=== PATIENT | male | born 1945 | race Caucasian/White ===

== ENCOUNTER 2017-08-02 07:49 | Day surgery (SDC) | payer MEDICARE, BC ==
[~2017-08-02] VITALS: Ht 172.7 cm; Wt 79.5 kg
[~2017-08-02 07:49] MED LIST: ALLER TEC PO; ASPI81CH; Amlodipine Besyl5 MG PO; BREO ELLIPTA 11 EACH INH; CEPH500 PO; DIPH50 PO; ERGO400 PO; FISH1000 PO; Flonase 0.05% N16 GM; HYDACE5 PO; LOVA40 PO; PROBIOTIC PO; WARF5 PO
== END 2017-08-02 10:08 | disposition home or self-care (01) ==
LOC: ORSCSDS 07:49
PROVIDERS: Internal Medicine Gastroenterology
PROC: 0DBH8ZX Excision of Cecum, Via Natural or Artificial Opening Endoscopic, Diagnostic (ICD-10-PCS; principal; 2017-08-02 09:00)
PROC: 0DBK8ZX Excision of Ascending Colon, Via Natural or Artificial Opening Endoscopic, Diagnostic (ICD-10-PCS; principal; 2017-08-02 09:00)
DX: Z12.11 Encounter for screening for malignant neoplasm of colon (principal); D12.0 Benign neoplasm of cecum; D12.2 Benign neoplasm of ascending colon; K64.8 Other hemorrhoids; K57.30 Diverticulosis of large intestine without perforation or abscess without bleeding; Z86.010 Personal history of colon polyps; I10 Essential (primary) hypertension; Z87.891 Personal history of nicotine dependence; E78.5 Hyperlipidemia, unspecified; D69.6 Thrombocytopenia, unspecified; Z79.899 Other long term (current) drug therapy
CPT/HCPCS: 88305; J0330; J1980; J2405; J7120

== ENCOUNTER → 2021-06-30 | Outpatient (CLI) | payer MEDICARE, BC ==
[2021-06-30 13:43] LABS: BASOPHILS ABSOLUTE AUTO 0.03 K/mm3 (0.00-0.23); BASOPHILS PERCENT AUTO 1 % (0-2); EOSINOPHILS ABSOLUTE AUTO 0.33 K/mm3 (0.00-0.68); EOSINOPHILS PERCENT AUTO 5 % (0-6); Hematocrit 42.7 % (37.0-53.0); Hemoglobin 14.2 g/dL (13.5-17.5); IMMATURE GRAN ABSOLUTE AUTO 0.01 K/mm3 (0.00-0.10); IMMATURE GRAN PERCENT AUTO 0 % (0-1); LYMPHOCYTES ABSOLUTE AUTO 1.14 K/mm3 (0.84-5.20); LYMPHOCYTES PERCENT AUTO 18 % (21-46); MONOCYTES ABSOLUTE AUTO 0.86 K/mm3 (0.16-1.47); MONOCYTES PERCENT AUTO 13 % (4-13); Mean Corpuscular HGB 32.1 pg (26.0-34.0); Mean Corpuscular HGB Conc 33.3 g/dL (31.5-36.5); Mean Corpuscular Volume 97 fL (80-100); NEUTROPHILS ABSOLUTE AUTO 4.14 K/mm3 (1.96-9.15); NEUTROPHILS PERCENT AUTO 64 % (41-73); Platelet Count 137 K/mm3 (150-400); RDW Coefficient Variation 12.4 % (11.7-14.2); RDW Standard Deviation 44.1 fL (35.1-46.3); Red Blood Cell Count 4.42 M/mm3 (4.30-5.90); White Blood Cell Count 6.51 K/mm3 (4.00-11.30)
[2021-06-30 13:45] LABS: Mean Platelet Volume 13.1 fL (9.1-12.4)
[2021-06-30 14:35] LABS: Alanine Aminotransfer (ALT/SGP 30 U/L (12-78); Albumin, Blood 3.8 g/dL (3.4-5.0); Albumin/Globulin Ratio 1.1 (0.8-1.8); Alk Phos 64 U/L (50-136); Anion Gap 6 mmol/L (6-16); Aspartate Aminotrans (AST/SGOT 19 U/L (12-37); Blood Urea Nitrogen 15 mg/dL (8-24); Bun/Creatinine Ratio 18.5 (12.0-20.0); CO2, Blood 28 mmol/L (21-32); Calcium, Blood 9.2 mg/dL (8.5-10.1); Chloride, Blood 108 mmol/L (98-108); Cholesterol 163 mg/dL (50-200); Creatinine, Blood 0.81 mg/dL (0.60-1.20); Globulin, Blood 3.5 g/dL (2.2-4.0); Glomerular Filtration Rate >60 (60-); Glucose, Blood 98 mg/dL (70-99); Potassium, Blood 4.5 mmol/L (3.5-5.5); Sodium, Blood 142 mmol/L (136-145); Total Protein, Blood 7.3 g/dL (6.4-8.2); Triglycerides 98 mg/dL (30-160); Very Low Density Lipoprot Chol 19 mg/dL (6-32)
[2021-06-30 14:44] LABS: CHOL/HDL RATIO 2.9; HDL Cholesterol 56 mg/dL (>39); LDL/HDL RATIO 1.6; Low Density Lipoprotein Chol 87 mg/dL (0-110); Thyroid Stimulating Hormone 0.945 uIU/mL (0.360-4.800)
== END | disposition home or self-care (01) ==
LOC: LAB 07:15 → LAB SHORT 07:15
PROVIDERS: Internal Medicine
DX: E78.5 Hyperlipidemia, unspecified (principal)
CPT/HCPCS: 36415; 80053; 80061; 84443; 85025

== ENCOUNTER 2021-10-27 11:46 | Day surgery (SDC) | payer MEDICARE, BC ==
[~2021-10-27] VITALS: Ht 172.7 cm; Wt 81.5 kg
== END 2021-10-27 15:00 | disposition home or self-care (01) ==
LOC: ORSCSDS 11:46
PROVIDERS: Internal Medicine Gastroenterology
PROC: 0DBK8ZX Excision of Ascending Colon, Via Natural or Artificial Opening Endoscopic, Diagnostic (ICD-10-PCS; principal; 2021-10-27 13:00)
PROC: 0DBH8ZX Excision of Cecum, Via Natural or Artificial Opening Endoscopic, Diagnostic (ICD-10-PCS; principal; 2021-10-27 13:00)
DX: Z12.11 Encounter for screening for malignant neoplasm of colon (principal); Z86.010 Personal history of colon polyps; Z80.0 Family history of malignant neoplasm of digestive organs; D12.0 Benign neoplasm of cecum; D12.2 Benign neoplasm of ascending colon; K57.30 Diverticulosis of large intestine without perforation or abscess without bleeding; I10 Essential (primary) hypertension; Z87.891 Personal history of nicotine dependence; Z79.899 Other long term (current) drug therapy
CPT/HCPCS: 88305; J2405; J2704; J7120

== ENCOUNTER 2022-01-31 05:35 | Emergency (ER) | payer MEDICARE, BC ==
[~2022-01-31] VITALS: Ht 177.8 cm; Wt 93.0 kg
== END 2022-02-01 07:05 | disposition home or self-care (01) ==
LOC: ER 05:35
DX: U07.1 COVID-19 (principal); I10 Essential (primary) hypertension; E78.5 Hyperlipidemia, unspecified; Z88.8 Allergy status to other drugs, medicaments and biological substances; Z91.048 Other nonmedicinal substance allergy status
CPT/HCPCS: 99282

== ENCOUNTER 2024-10-17 09:07 | Day surgery (SDC) | payer MEDICARE, BC ==
[~2024-10-17] VITALS: Ht 172.7 cm; Wt 80.5 kg
[~2024-10-17 09:07] MED LIST changes: +Lactated Ringer's 1,000 ML IV ONE; +propofoL 50 ML IV ONE
[2024-10-17] MEDS ORDERED: LOSA25 (09:33)
[2024-10-17] MEDS ORDERED: TAMS.4ER (09:34)
[2024-10-17] MEDS ORDERED: XALATAN2.5 ML (09:35)
[2024-10-17] MEDS ORDERED: Lactated Ringer's 1,000 ML IV ONE (09:58)
[2024-10-17] MEDS ORDERED: Glycopyrrolate 0.2 MG/ML 1MLVIAL ONE (11:07)
[2024-10-17 11:44] VITALS: BP 115/86
--- NOTE | 2024-10-17 11:52 | NUR ---
10/17/24 1152 Soo Doyle DIVERTICULOSIS AND HIGH FIBER DIET PAMPHLETS GIVEN TO PT IN [facility].
== END 2024-10-17 12:10 | disposition home or self-care (01) ==
LOC: ORSCSDS 09:07
PROVIDERS: Internal Medicine Gastroenterology
PROC: 0DBK8ZX Excision of Ascending Colon, Via Natural or Artificial Opening Endoscopic, Diagnostic (ICD-10-PCS; principal; 2024-10-17 10:45)
PROC: 0DBL8ZX Excision of Transverse Colon, Via Natural or Artificial Opening Endoscopic, Diagnostic (ICD-10-PCS; principal; 2024-10-17 10:45)
PROC: 0DBM8ZX Excision of Descending Colon, Via Natural or Artificial Opening Endoscopic, Diagnostic (ICD-10-PCS; principal; 2024-10-17 10:45)
PROC: 0DB78ZX Excision of Stomach, Pylorus, Via Natural or Artificial Opening Endoscopic, Diagnostic (ICD-10-PCS; principal; 2024-10-17 10:45)
PROC: 0DBN8ZX Excision of Sigmoid Colon, Via Natural or Artificial Opening Endoscopic, Diagnostic (ICD-10-PCS; principal; 2024-10-17 10:45)
DX: Z12.11 Encounter for screening for malignant neoplasm of colon (principal); Z86.0101 Personal history of adenomatous and serrated colon polyps; Z87.19 Personal history of other diseases of the digestive system; K21.9 Gastro-esophageal reflux disease without esophagitis; K25.9 Gastric ulcer, unspecified as acute or chronic, without hemorrhage or perforation; D12.3 Benign neoplasm of transverse colon; D12.2 Benign neoplasm of ascending colon; D12.4 Benign neoplasm of descending colon; K63.5 Polyp of colon; K64.8 Other hemorrhoids; K57.30 Diverticulosis of large intestine without perforation or abscess without bleeding; Z79.899 Other long term (current) drug therapy; I10 Essential (primary) hypertension; E78.5 Hyperlipidemia, unspecified; Z79.01 Long term (current) use of anticoagulants; Z85.9 Personal history of malignant neoplasm, unspecified; Z87.891 Personal history of nicotine dependence
CPT/HCPCS: 88305; 88341; 88342; J2704; J7120

== ENCOUNTER 2025-05-08 06:09 | Day surgery (SDC) | payer MEDICARE, BC ==
[~2025-05-08] VITALS: Ht 172.7 cm; Wt 80.4 kg
[~2025-05-08 06:09] MED LIST changes: +Balanced Salt Epinephrine Irrigation Solution 500 mL IR SCH; +LOSA25; -Lactated Ringer's 1,000 ML IV ONE; +Moxifloxacin HCL 0.5 MG/0.1 ML 0.4MLSYR LEFTEYE SCH; +Ondansetron 4 MG SoluTab MM PRN; +PHENYLEPHRINE\\TROPICAMIDE\\TETRACAINE OPHTHALMIC DILATING SOLN LEFTEYE PRN; +Povidone-Iodine 450 DROP/30 ML Solution LEFTEYE SCH; +Povidone-Iodine 450 DROP/30 ML Solution ONE; +TAMS.4ER; +Tetracaine HCl/Pf 0.5% Opth Soln 4 ml ONE; +XALATAN2.5 ML; +diazePAM 5 MG,diazePAM 2 MG PO SCH; -propofoL 50 ML IV ONE
--- NOTE | 2025-05-08 06:40 | NUR ---
05/08/25 0640 Faustino Quiles CALL LIGHT WITHIN REACH. EYE DROPS IN LEFT EYE AROUND 0637
[2025-05-08] MEDS ORDERED: Tetracaine HCl 0.5% Opth Soln 15 ml LEFTEYE ONE (07:28)
--- NOTE | 2025-05-08 07:32 | NUR ---
05/08/25 0732 Chasidy Waller N 134/71 53 96% 10L BLOW BY O2 18
[2025-05-08 07:55] VITALS: BP 132/75
== END 2025-05-08 08:08 | disposition home or self-care (01) ==
LOC: ORSCSDS 06:09
PROVIDERS: Student in an Organized Health Care Education/Training Program
PROC: 08RK3JZ Replacement of Left Lens with Synthetic Substitute, Percutaneous Approach (ICD-10-PCS; principal; 2025-05-08 07:30)
DX: H25.813 Combined forms of age-related cataract, bilateral (principal); H21.81 Floppy iris syndrome; Z87.891 Personal history of nicotine dependence; I10 Essential (primary) hypertension; E78.5 Hyperlipidemia, unspecified; K21.9 Gastro-esophageal reflux disease without esophagitis; D69.6 Thrombocytopenia, unspecified; Z79.899 Other long term (current) drug therapy
CPT/HCPCS: A9270; J2003; V2632

== ENCOUNTER 2025-05-15 07:06 | Day surgery (SDC) | payer MEDICARE, BC ==
[~2025-05-15] VITALS: Ht 172.7 cm; Wt 87.2 kg
[~2025-05-15 07:06] MED LIST changes: -Moxifloxacin HCL 0.5 MG/0.1 ML 0.4MLSYR LEFTEYE SCH; +Moxifloxacin HCL 0.5 MG/0.1 ML 0.4MLSYR RIGHTEYE SCH; -PHENYLEPHRINE\\TROPICAMIDE\\TETRACAINE OPHTHALMIC DILATING SOLN LEFTEYE PRN; +PHENYLEPHRINE\\TROPICAMIDE\\TETRACAINE OPHTHALMIC DILATING SOLN RIGHTEYE PRN; -Povidone-Iodine 450 DROP/30 ML Solution LEFTEYE SCH; +Povidone-Iodine 450 DROP/30 ML Solution RIGHTEYE SCH; -diazePAM 5 MG,diazePAM 2 MG PO SCH
--- NOTE | 2025-05-15 07:47 | NUR ---
05/15/25 0747 Faustino Quiles CALL LIGHT WITHIN REACH. PT ON CONTINOUS PULSE OXIMETER FOR MONITORING.
[2025-05-15] MEDS ORDERED: Tetracaine HCl 0.5% Opth Soln 15 ml RIGHTEYE ONE (08:19)
--- NOTE | 2025-05-15 08:23 | NUR ---
05/15/25 0823 Chasidy Waller N 130/92 99% 10L BLOW BY O2 53 20
[2025-05-15 08:40] VITALS: BP 136/74
--- NOTE | 2025-05-15 08:43 | NUR ---
05/15/[address] AT BEDSIDE
== END 2025-05-15 08:51 | disposition home or self-care (01) ==
LOC: ORSCSDS 07:06
PROVIDERS: Student in an Organized Health Care Education/Training Program
PROC: 08RK3JZ Replacement of Left Lens with Synthetic Substitute, Percutaneous Approach (ICD-10-PCS; principal; 2025-05-15 08:30)
DX: H25.811 Combined forms of age-related cataract, right eye (principal); H21.81 Floppy iris syndrome; H40.1131 Primary open-angle glaucoma, bilateral, mild stage; H35.3131 Nonexudative age-related macular degeneration, bilateral, early dry stage; Z96.1 Presence of intraocular lens; Z87.891 Personal history of nicotine dependence; I10 Essential (primary) hypertension; E78.5 Hyperlipidemia, unspecified; K21.9 Gastro-esophageal reflux disease without esophagitis; D69.6 Thrombocytopenia, unspecified; Z79.899 Other long term (current) drug therapy
CPT/HCPCS: A9270; J2003; V2632